=== PATIENT | female | born 1985 | race Caucasian/White ===

== ENCOUNTER 2019-10-15 07:21 | Emergency (ER) | payer SELFPAY ==
[~2019-10-15] VITALS: Ht 167.6 cm; Wt 55.3 kg
--- NOTE | 2019-10-15 07:30 | NUR ---
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
[2019-10-15] MEDS ORDERED: ACETAMINOPHEN 325 MG TABLET ONE (08:02)
[2019-10-15] MEDS: ACETAMINOPHEN 325 MG TABLET PO ONE (08:11)
[2019-10-15] MEDS: IV NS 0.9% 1,000 ML BAG IV ONE (08:11)
[2019-10-15] MEDS ORDERED: diphenhydrAMINE HCL 50 MG CAPSULE ONE (08:15)
[2019-10-15] MEDS: diphenhydrAMINE HCL 25 MG CAPSULE PO ONE (08:17)
[2019-10-15 09:53] VITALS: BP 102/69
--- NOTE | 2019-10-15 09:53 | NUR ---
PATIENT DENIES PAIN AT THIS TIME. IV removed. Catheter intact and site benign. Pressure and 4x4 applied to site. No bleeding noted. Patient discharged to home in stable condition. Written and verbal after care instructions given. Patient verbalizes understanding of instruction.
== END 2019-10-15 09:53 | disposition home or self-care (01) ==
LOC: ER 07:23
DX: F10.129 Alcohol abuse with intoxication, unspecified (principal); N94.6 Dysmenorrhea, unspecified; E86.0 Dehydration; Z98.890 Other specified postprocedural states; Z88.2 Allergy status to sulfonamides; Z88.6 Allergy status to analgesic agent; Y90.9 Presence of alcohol in blood, level not specified
CPT/HCPCS: 96360; 99283; J7030; Q0163

== ENCOUNTER 2023-11-21 21:27 | Emergency (ER) | payer OTHER ==
[~2023-11-21] VITALS: Ht 167.6 cm; Wt 59.0 kg
[2023-11-21] MEDS ORDERED: ACETAMINOPHEN ES 500 MG TABLET ONE (22:22)
[2023-11-21] MEDS ORDERED: ACETAMINOPHEN ES 500 MG TABLET PO ONE (22:30)
[2023-11-21] MEDS ORDERED: TYL2T MC (22:35)
[2023-11-21 22:42] VITALS: BP 101/64; TEMP 98.2; O2SAT 98
== END 2023-11-21 22:42 | disposition home or self-care (01) ==
LOC: ER 21:38
DX: S06.0XAA Concussion with loss of consciousness status unknown, initial encounter (principal); Z88.2 Allergy status to sulfonamides; Z88.8 Allergy status to other drugs, medicaments and biological substances; W18.30XA Fall on same level, unspecified, initial encounter; Y93.89 Activity, other specified; Y92.89 Other specified places as the place of occurrence of the external cause; Y99.8 Other external cause status